=== PATIENT | female | born 1945 | race Caucasian/White ===

== ENCOUNTER → 2016-10-17 | Outpatient (CLI) | payer OTHER ==
[~2016-10-17] MED LIST: ACCUNEB SO1.25 MG/1; ASA81BEC PO; ASPIR 8181 MG PO; ATORVASTATIN CA40 MG PO; ENALAPRIL MALEA10 M1 PO; LEVOTHYROXIN0.025 MG PO; LOPRESSOR50 PO; NORCO 5-325 TA1 EACH PO; TYLENOL325 MG PO; XANAX 0.25 MG0.25 MG PO
== END ==
LOC: RAD 12:22
DX: M47.892 Other spondylosis, cervical region (principal)